=== PATIENT | male | born 1985 | race Caucasian/White ===

== ENCOUNTER 2018-06-28 00:37 | Outpatient (CLI) | payer OTHER, SELFPAY ==
--- NOTE | 2018-06-28 09:00 | DI.US_ITS ---
SYMPTOMS/DIAGNOSIS: MASS OF LT TESTICLE, N50.9 SCROTAL ULTRASOUND: The examination was carried out according to the usual protocol. The right testicle measures 4.4 x 2.9 x 3 cm and is acoustically homogeneous with no evidence of a mass or cyst. Normal color flow is evident. The right epididymis measures 7 x 8 x 5 mm and appears normal. The right epididymal head and body measure 5 mm in thickness. The left testicle measures 3.5 x 3.3 x 1.9 cm and is acoustically homogeneous. There is slightly increased color flow vs the right testicle, however, this could be at least partially on the basis of positioning. The left epididymal head measures 8.9 x 8 mm. There is a 6 x 5 x 3 mm cyst in the mid epididymal body posteriorly. There is also a 4 x 4 x 3 mm cystic structure on the left side with mild internal echoes in the mid to lateral epididymal body. Note is made of slightly increased color flow in the left epididymal body which again could be on the basis of the patient's positioning. The left epididymal body measures approximately 5 mm in this patient. SUMMARY: No discrete testicular mass is demonstrated. There are findings involving the left epididymis including a 6 x 5 x 3 mm cyst. No solid mass is evident. These findings to be correlated with the patient's clinical status.
== END 2018-06-28 00:57 ==
PROVIDERS: PCP Physician Assistant Medical; Visit Provider Physician Assistant Medical
DX: N50.9 Disorder of male genital organs, unspecified (principal); N50.3 Cyst of epididymis
CPT/HCPCS: 76870

== ENCOUNTER 2018-06-28 09:58 | Outpatient (REF) | payer OTHER, SELFPAY ==
[2018-06-29 11:40] LABS: Campylobacter PCR SEE COMMENTS; Salmonella PCR SEE COMMENTS; Shiga Toxin PCR SEE COMMENTS; Shigella/Enteroinvasive Ecoli SEE COMMENTS
== END 2018-06-28 10:18 ==
LOC: NCHCN 09:58
PROVIDERS: PCP Family Medicine; Visit Provider Physician Assistant Medical
DX: R19.7 Diarrhea, unspecified (principal)
CPT/HCPCS: 87329; 87505; 83630

== ENCOUNTER 2019-01-31 11:12 | Emergency (ER) | payer OTHER, SELFPAY ==
[2019-01-31 11:17] VITALS: BP 130/86; PULSE 66; RESP 16; TEMP 36.8; O2SAT 99
--- NOTE | 2019-01-31 11:19 | W.ED.GENAD ---
Discharge Plan Disposition Patient Disposition: HOME Condition: Good Discharge Details Chief Complaint: Orthopedic Clinical Impression: Suprapatellar effusion of knee, Injury of quadriceps muscle Primary Care Provider: Thomas Hunt ED Provider: Robel Monet Discharge Instructions Instructions: Swollen Knee Joint (ED) Additional Instructions: Elevate your leg whenever possible. Observe closely for signs of infection which include redness, fever, chills, worsening pain, increased swelling. It is important for you to follow-up with the orthopedist we have referred you to. Return to the emergency department if your symptoms worsen prior to that appointment. We have given you crutches and knee immobilizer for comfort and to help with swelling. Take ibuprofen 600 mg every 8 hours as needed for pain. Discharge Data Discharge Date/Time-TO BE ENTERED AT DEPARTURE: 01/31/19 14:40 Medical Decision Making Suprapatellar effusion noted on x-ray, no foreign body. Patient is afebrile, no constitutional symptoms. There is no erythema or warmth. We discussed the importance of elevation as well as close observation for signs of infection as well as need for prompt follow-up with orthopedist as will need to ensure soft tissue is healing appropriately and to ensure no infection is developing. Return precautions reviewed with patient and mother. He will continue his Keflex prescription. Crutches and knee immobilizer given. HPI Yesterday while at work patient was running and stumbled, and when he fell he struck his right thigh just above the knee on a steel spike. It did not break through his jeans however it did push on his skin hard enough to lacerated. He states he sustained a fairly deep laceration to the right knee just above the kneecap. They washed it out and sutured it after taking an x-ray. He is here today because he has increased pain swelling above his right knee. Pain is unchanged. No fevers or chills. No redness. No decreased energy. States it hurts when he extends his right knee is full range of motion and strength. No numbness. No additional injuries. He is taking his new prescription of Keflex starting yesterday. General Date/Time Provider Initiated Documentation: 01/31/19 11:17. Review of Systems Constitutional Denies chills, Denies fatigue, Denies fever(s) and Denies lethargy Cardiovascular Denies chest pain and Denies dyspnea Respiratory Denies dyspnea Gastrointestinal Denies abdominal pain, Denies nausea and Denies vomiting Musculoskeletal Denies back pain, Denies muscle weakness and Denies numbness Integumentary/Breasts Denies rash Neurologic Denies focal weakness and Denies numbness Endocrine Denies fatigue Hematologic/Lymphatic Denies easy bruising [facility] Social History (Updated 07/31/18 @ 13:25 by Tj Chu MD) Smoking/Tobacco Use Status: Former Tobacco Use Alcohol Intake: never Drug use: Daily Substance use type: marijuana Do you feel safe at home: Yes Do you feel safe in your relationship?: Yes Exam Const General: cooperative, healthy appearing and no acute distress HENMT Head: normal to inspection Ears: hearing grossly normal bilaterally Eyes EOM: EOM intact bilaterally Neck Neck: normal visual inspection Resp Effort & Inspection: normal respiratory effort Skin General skin exam: no rashes or lesions noted Neuro General: alert, awake and oriented x3 Speech: speech normal Extrem General: full ROM, no pedal edema and no calf tenderness Other: There is an approximate 3 cm closed sutured laceration right suprapatellar region. There is swelling of soft tissue proximal to this and a 1 inch x 1.5 inch region involving the distal vastus lateralis musculature. Patient is able to fully extend right knee to resistance. There is no erythema. There is no induration.
--- NOTE | 2019-01-31 12:59 | DI.RAD_ITS ---
SYMPTOM/DIAGNOSIS: RT SUPRAPATELLAR KNEE PAIN, SWELLING, LACERATION RIGHT KNEE: Multiple views. No priors. No acute fracture or dislocation is seen. No radiopaque foreign bodies are seen in the soft tissues. There is a moderate suprapatellar joint effusion present. IMPRESSION: Joint effusion. No acute fracture or dislocation.
[2019-01-31 14:38] VITALS: BP 130/86; PULSE 66; RESP 16; TEMP 36.8; O2SAT 99
== END 2019-01-31 14:40 | disposition home or self-care (01) ==
PROVIDERS: Emergency Provider Physician Assistant Medical; PCP Physician Assistant Medical
DX: M25.461 Effusion, right knee (principal); S71.111A Laceration without foreign body, right thigh, initial encounter; W01.198A Fall on same level from slipping, tripping and stumbling with subsequent striking against other object, initial encounter; Y99.0 Civilian activity done for income or pay
CPT/HCPCS: 29505; 99283; 73564; 99282; E0114; L1830

== ENCOUNTER 2019-02-06 11:25 | Emergency (ER) | payer OTHER, SELFPAY ==
[2019-02-06 11:34] VITALS: BP 127/73; PULSE 63; RESP 18; TEMP 36.4; O2SAT 98
--- NOTE | 2019-02-06 11:46 | ED.GENADUL_ITS ---
Discharge Plan Disposition Patient Disposition: HOME Condition: Stable Discharge Details Chief Complaint: Recheck Clinical Impression: Visit for suture removal Primary Care Provider: Thomas Hunt ED Provider: Oscar Mccormick Home Meds and New Rx's Prescriptions: No Action No Known Home Meds RF: 0 Discharge Instructions Instructions: Stitches Removal (ED) Stand Alone Forms: Work Release Medical Decision Making pt here for eval for suture removal. Had sutures placed on anterior right knee a week ago. Has no pain or discharge and wound appears well healed without signs of infection and I removed 2 sutures without difficulty. Will dc home Differential Diagnosis suture removal HPI General Mode of arrival: ambulatory . Date/Time Provider Initiated Documentation: 02/06/19 11:39 . Limitations to Documentation: no limitations . Information obtained by: patient . History of Present Illness 33 year old M presents to the emergency department with the chief complaint of right knee suture removal, described as moderate, and it has been constant. No relieving factors improve symptom(s), No exacerbating factors reported . Patient did receive the following treatments prior to arrival, none Related Data Home Medications Medication Instructions Recorded Confirmed Unknown [No Known Home Meds] 02/06/19 02/06/19 Allergies Allergy/AdvReac Type Severity Reaction Status Date / Time No Known Allergies Allergy Unverified 02/06/19 11:38 General Stated Complaint: Recheck ANI: 4 Review of Systems Review of Systems All systems reviewed & are unremarkable except as noted in HPI and below Constitutional Denies chills, Denies fever(s) and Denies weakness Cardiovascular Denies chest pain and Denies dyspnea Respiratory Denies cough and Denies dyspnea Gastrointestinal Denies abdominal pain, Denies nausea and Denies vomiting Musculoskeletal Denies joint swelling Neurologic Denies weakness [facility] Social History (Updated 07/31/18 @ 13:25 by Tj Chu MD) Smoking/Tobacco Use Status: Former Tobacco Use Alcohol Intake: never Drug use: Daily Substance use type: marijuana Do you feel safe at home: Yes Do you feel safe in your relationship?: Yes Exam Const General: no acute distress Orientation: alert HENMT Head: normal to inspection Ears: external ears normal General nose exam: external nose normal Mouth: moist mucous membranes Eyes General: appearance normal, both eyes and all related structures Neck Neck: normal visual inspection Resp Effort & Inspection: normal respiratory effort and able to speak in complete sentences Cardio Rate: regular rate Skin General skin exam: no rashes or lesions noted Neuro General: alert and oriented x3 Extrem General: full ROM and normal capillary refill Psych Mental Status: mental status grossly normal Course Vital Signs Temperature 36.4 C L 02/06/19 11:34 Pulse 63 02/06/19 11:34 Respiratory Rate 18 02/06/19 11:34 Blood Pressure 127/73 02/06/19 11:34 Pulse Oximetry 98 02/06/19 11:34 Temperature 36.4 C L 02/06/19 11:34 Temperature Source Skin 02/06/19 11:34 Pulse 63 02/06/19 11:34 Respiratory Rate 18 02/06/19 11:34 Respiratory Effort Non-Labored 02/06/19 11:36 Blood Pressure 127/73 02/06/19 11:34 Blood Pressure Position Sitting 02/06/19 11:34 Pulse Oximetry 98 02/06/19 11:34 Oxygen Delivery Method Room Air 02/06/19 11:34 Oxygen Flow Rate 0 02/06/19 11:34 Pain Level 2 02/06/19 11:34
== END 2019-02-06 11:49 | disposition home or self-care (01) ==
PROVIDERS: Emergency Provider Emergency Medicine; PCP Physician Assistant Medical
DX: S71.111D Laceration without foreign body, right thigh, subsequent encounter (principal); W01.198D Fall on same level from slipping, tripping and stumbling with subsequent striking against other object, subsequent encounter; Z48.02 Encounter for removal of sutures

== ENCOUNTER 2019-10-23 19:15 | Emergency (ER) | payer OTHER, SELFPAY ==
[2019-10-23 19:28] VITALS: BP 122/84; PULSE 60; RESP 18; TEMP 36.9; O2SAT 100
[2019-10-23] MEDS: Fluorescein STRIPS 100/BOX 1 MG (19:32)
[2019-10-23] MEDS: Tetracaine 0.5% 4 ML BTL (19:32)
--- NOTE | 2019-10-23 19:44 | NUR.NOTE ---
Nursing Note: Irrigated left affected eye with copious amounts of NS per provider. No FB visualized. Upper and lower lids inverted- nothing seen.
--- NOTE | 2019-10-23 19:50 | ED.GENADUL_ITS ---
Discharge Plan Disposition Patient Disposition: HOME Discharge Details Chief Complaint: EyeProblem Clinical Impression: Abrasion, corneal Primary Care Provider: Thomas Hunt ED Provider: Johnny Santillan Home Meds and New Rx's Prescriptions: New erythromycin 5 mg/gram (0.5 %) ointment 0.5 inch OP TID 5 Days Qty: 1 RF: 0 Discharge Instructions Instructions: Corneal Abrasion (ED) Additional Instructions: Ilotycin as directed. [id number] lubricating drops as directed for symptomatic control. Avoid touching or rubbing your eye. Please watch for new or worsening symptoms and return to the ER for any concerns. I do recommend reaching out to the [facility] tomorrow for prompt outpatient reevaluation [facility] [Outside] Medical Decision Making Patient reports that he may have a scratch or any foreign body in his left eye that occurred around 1030 this morning. Denies blurry vision or visual change. No discharge. Does not wear contacts or glasses. Applied tetracaine and evaluated with fluorescein. Dye uptake noted, corneal abrasion present, no obvious foreign body. Patient reports that he would feel better if his eye was flushed. He is currently asymptomatic after the tetracaine has been applied. I was irrigated, no obvious foreign body noted. Patient comfortable being treated for corneal abrasion. Ilotycin provided here in the ER and recommend [id number] lubricating artificial tears. Patient has no additional questions or concerns and is comfortable discharge. Medical Records Medical records reviewed: Yes I reviewed the patient's medical records. HPI General Mode of arrival: ambulatory . Date/Time Provider Initiated Documentation: 10/23/19 19:45 . Limitations to Documentation: no limitations . Information obtained by: patient . HPI Narrative: 33-year-old gentleman who reports at work around 1030 this morning he was cutting wood and felt a piece of wood go into his eye. Unsure whether he scratched his eye or there may still be a foreign body. He reports that there is moderate pain, light makes the pain worse. Denies any visual changes. He reports that he does not wear glasses or contacts, has not seen a doctor in a long time and has poor baseline vision. Denies any pain or injury. Related Data Home Medications Medication Instructions Recorded Confirmed erythromycin 0.5 inch OP TID 5 Days #1 gm 10/23/19 Previous Rx's Medication Instructions Recorded erythromycin 0.5 inch OP TID 5 Days #1 gm 10/23/19 Allergies Allergy/AdvReac Type Severity Reaction Status Date / Time Penicillins Allergy Unverified 10/23/19 19:32 General Stated Complaint: EyeProblem ANI: 4 Review of Systems Constitutional Constitutional: Denies headache(s) and Denies weakness Eyes Eyes: Denies blurry vision, Denies change in vision, Denies eye discharge, Reports irritation, Reports itchy eyes, Denies loss of vision, Denies seeing flashes and Reports photophobia ENT Ears, Nose, Mouth, and Throat: Denies headache(s) Musculoskeletal Musculoskeletal: Denies numbness and Denies tingling Integumentary/Breasts Skin/Breast: Denies rash Neurologic Neurologic: Denies headache(s), Denies loss of vision, Denies numbness, Denies tingling and Denies weakness Allergic/Immunologic Allergic/Immunologic: Reports itchy eyes [facility] Social History Smoking/Tobacco Use Status: Former Tobacco Use Alcohol Intake: never Drug use: Daily Substance use type: marijuana Do you feel safe at home: Yes Do you feel safe in your relationship?: Yes Exam Const General: cooperative, healthy appearing, comfortable and no acute distress Orientation: alert and awake HENKS Head: normal to inspection, normocephalic and atraumatic Mouth: moist mucous membranes Eyes Alignment and Position: alignment normal Periorbital: periorbital findings normal Eyelids: eyelids normal Conjunctivae: conjunctival abnormality left conjunctival injection diffuse Sclera: sclerae normal Cornea: corneas abnormal on the left abrasion curved and at the following clock position (From the 9:00 to 1 o'clock position); with no foreign body noted and fluorescein used Pupils: PERRL EOM: EOM intact bilaterally Direct ophthalmoscopy: normal light reflex Neck Neck: normal visual inspection, trachea midline and supple Resp Effort & Inspection: normal respiratory effort and able to speak in complete sentences Cardio Rate: regular rate Rhythm: regular rhythm Skin General skin exam: no rashes or lesions noted Neuro General: patient alert, patient awake, moves all extremities and no focal motor deficits Sensory Exam: no sensory deficits noted Psych Appearance: grossly normal Mental Status: mental status grossly normal Course Vital Signs Vital signs: Vital Signs Temperature 36.9 C 10/23/19 19:28 Pulse 60 10/23/19 19:28 Respiratory Rate 18 10/23/19 19:28 Blood Pressure 122/84 10/23/19 19:28 Pulse Oximetry 100 10/23/19 19:28 Temperature 36.9 C 10/23/19 19:28 Temperature Source Skin 10/23/19 19:28 Pulse 60 10/23/19 19:28 Respiratory Rate 18 10/23/19 19:28 Respiratory Effort Non-Labored 10/23/19 19:30 Blood Pressure 122/84 10/23/19 19:28 Blood Pressure Position Sitting 10/23/19 19:28 Pulse Oximetry 100 10/23/19 19:28 Oxygen Delivery Method Room Air 10/23/19 19:28 Oxygen Flow Rate 0 10/23/19 19:28 Pain Level 9 10/23/19 19:28
[2019-10-23 19:52] VITALS: BP 122/84; PULSE 60; RESP 18; TEMP 36.9; O2SAT 100
[2019-10-23] MEDS: Erythromycin Ophth Oint 3.5 GM TUBE OS (19:52)
== END 2019-10-23 20:06 | disposition home or self-care (01) ==
PROVIDERS: Emergency Provider Physician Assistant; PCP Physician Assistant Medical
DX: S05.02XA Injury of conjunctiva and corneal abrasion without foreign body, left eye, initial encounter (principal); X58.XXXA Exposure to other specified factors, initial encounter; Y99.0 Civilian activity done for income or pay
CPT/HCPCS: 99283